=== PATIENT | male | born 1970 | race Two or more races ===

== ENCOUNTER 2023-08-12 07:00 | Inpatient (IN) | payer OTHER ==
[~2023-08-12] VITALS: Ht 167.6 cm; Wt 71.2 kg
[2023-08-12 08:48] LABS: HEMATOCRIT 43.6 % (39.0-48.0); HEMOGLOBIN 14.9 g/dL (13-16.00); MEAN CELL VOLUME 89.2 fL (80.0-100.00); MEAN CORPUSCULAR HEMOGLOBIN 30.5 pg (27.00-32.0); MEAN CORPUSCULAR HGB CONC 34.2 g/dl (32.0-36.0); PLATELET COUNT 194 K/uL (150-450); RED BLOOD COUNT 4.89 M/uL (4.00-6.00); RED CELL DISTRIBUTION WIDTH 13.8 % (11.5-14.5)
[2023-08-12] MEDS ORDERED: SYNTHROID150 MCG PO (08:53)
[2023-08-12] MEDS ORDERED: SYNTHROID125 MCG PO (08:53)
[2023-08-12 09:03] LABS: INR 1.04; PARTIAL THROMBOPLASTIN TIME 29.7 SECONDS (22.0-34.0); PROTHROMBIN TIME 10.9 SECONDS (9.0-11.5)
[2023-08-12 09:06] LABS: ALBUMIN 3.8 gm/dL (3.4-5.0); BILIRUBIN TOTAL 0.91 mg/dL (0.3-1.2); CALCIUM 9.1 mg/dL (8.5-10.1); CREATININE SERUM 1.22 mg/dL (0.70-1.30); GFR 62.14; POTASSIUM 4.14 mEq/L (3.5-5.1); TOTAL PROTEIN 6.8 gm/dL (6.4-8.2)
[2023-08-12 09:27] LABS: PH,URINE 5.5 (5.0-8.0); URINE APPEARANCE Clear; URINE BILIRRUBIN Negative (NEGATIVE); URINE BLOOD Negative; URINE COLOR Yellow; URINE GLUCOSE Negative (NEGATIVE); URINE LEUKOCYTE Negative; URINE NITRATE Negative; URINE PROTEIN Negative (NEGATIVE); URINE UROBILINOGEN 0.2 E.U./dl
[2023-08-12 09:32] LABS: URINE EPITHELIAL CELLS 2.7 uL (0.0-38.8); URINE WBC 3.6 uL (0.0-23.2)
[2023-08-12 10:04] LABS: URINE RBC 0.8 uL (0.0-20.8)
[2023-08-16] MEDS ORDERED: EZETIMIBE10 MG (13:39)
[2023-08-16] MEDS ORDERED: ATORVASTATIN CA40 MG (13:39)
[2023-08-17 06:52] LABS: HEMOGLOBIN 13.1 g/dL (13-16.00); MEAN CORPUSCULAR HEMOGLOBIN 30.8 pg (27.00-32.0); MEAN CORPUSCULAR HGB CONC 34.6 g/dl (32.0-36.0); PLATELET COUNT 169 K/uL (150-450); RED BLOOD COUNT 4.27 M/uL (4.00-6.00); RED CELL DISTRIBUTION WIDTH 13.3 % (11.5-14.5)
[2023-08-18 05:29] LABS: HEMATOCRIT 33.5 % (39.0-48.0); HEMOGLOBIN 11.7 g/dL (13-16.00); MEAN CELL VOLUME 90.4 fL (80.0-100.00); MEAN CORPUSCULAR HEMOGLOBIN 31.4 pg (27.00-32.0); MEAN CORPUSCULAR HGB CONC 34.8 g/dl (32.0-36.0); PLATELET COUNT 157 K/uL (150-450); RED BLOOD COUNT 3.71 M/uL (4.00-6.00); RED CELL DISTRIBUTION WIDTH 13.2 % (11.5-14.5)
[2023-08-18] MEDS ORDERED: ELIQUIS2.5 MG PO (15:47)
[2023-08-18] MEDS ORDERED: PERCOCET 5-3251 EACH PO (15:47)
[2023-08-18] MEDS ORDERED: CEFADROXIL500 MG PO (15:47)
== END 2023-08-18 17:33 | DRG 470 ==
LOC: O/R 08-16 05:59 → SURG 08-16 07:00 → SURH 08-16 17:10 → SURG 08-16 19:18
PROVIDERS: ADMIT Orthopaedic Surgery; ATTEND Orthopaedic Surgery
PROC: 0SRB0J9 Replacement of Left Hip Joint with Synthetic Substitute, Cemented, Open Approach (ICD-10-PCS; principal; 2023-08-16 10:00)
DX: M16.12 Unilateral primary osteoarthritis, left hip (principal)